=== PATIENT | female | born 2000 | race Two or more races ===

== ENCOUNTER 2024-01-25 05:33 | Emergency (ER) | payer MEDICAID, OTHER ==
[~2024-01-25] VITALS: Ht 149.9 cm; Wt 88.3 kg
[2024-01-25 05:50] VITALS: BP 126/87; PULSE 66; RESP 15; TEMP 98
[2024-01-25 06:58] VITALS: O2SAT 98
[2024-01-25] MEDS: SUMAtriptan SUCCINATE 6 MG/0.5 ML VL SC ONE (07:03)
[2024-01-25] MEDS: ONDANSETRON ODT 4 MG TAB PO ONE (07:03)
[2024-01-25] MEDS ORDERED: SUMA50TA2 PO (07:48)
[2024-01-25] MEDS ORDERED: ZOFR4T PO (07:48)
== END 2024-01-25 08:03 | disposition home or self-care (01) ==
LOC: ER 05:33
DX: G43.909 Migraine, unspecified, not intractable, without status migrainosus (principal)
CPT/HCPCS: 96372; 99283; J3030; Q0162